=== PATIENT | female | born 1970 | race Caucasian/White ===

== ENCOUNTER 2023-09-25 11:30 | Outpatient (AMB) | payer OTHER, SELFPAY ==
--- NOTE | 2023-09-25 11:31 | A.OFFPC_ITS ---
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[facility] Intake Note: New patient visit Cupola Tender Required: No Allergies No Known Allergies Allergy (Verified 09/25/23 11:31) Medication List - Last Reconciled 09/25/23 by Ann Damon PA-C fluoxetine 20 mg PO DAILY losartan 25 mg PO DAILY Tobacco use date assessed: 09/25/23 Dental Screening Dental Screen Date: 09/25/23 Did you have a dental visit in the last 12 months?: Yes Did you have a dental problem in the last 6 months where you did not have access to dental care?: No Was dental information given to patient?: Patient has dentist HPI 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 She is transferring from [place]. She has a hx generalized anxiety, depression and htn. She states her last appointment was over a year ago. Psych: She is on fluoxetine 20 mg and states she is well controlled. CV: Blood pressure today in the office is 124/76. Her blood pressure has been controlled with losartan 25 mg. No chest pain or shortness on breath but she is getting dizziness. -she states that she is a little concern ed because in the last 9 months she has been getting these episodes of feeling lightheaded and off balance. She states it will come on out of nowhere and she will feel like she could faint or fall over. They feel about the same. She states that she then gets queasy, no vomiting but does get somewhat of a headache with it. She has not noticed if she has had any palpitations or discomfort but generally does not feel well or right. It gets better if she lays down usually. She states that movement does make it worse. She has been well hydrated she did not have any chest pain or shortness on breath with it. No episodes of syncope. No vision changes. No headaches at baseline. No numbness, tingling or weakness. She says that this was not started by an illness. She denies any recent travel. No history of vertigo before but she wonders if that is what this was. No known family history of heart disease. She is worried because the last time this happened in August it lasted for about a week on and off. She states that she was pretty much bed ridden for 1 week. Mammo: 06/10, utd Pap: overdue Bone density: postmenopausal x 1 year. 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 1. Little interest or pleasure in doing things: not at all 2. Feeling down, depressed, or hopeless: not at all 3. Trouble falling or staying asleep, or sleeping too much: several days 4. Feeling tired or having little energy: several days 5. Poor appetite or overeating: several days 6. Feeling bad about yourself - or that you are a failure or have let yourself or your family down: not at all 7. Trouble concentrating on things, such as reading the newspaper or watching television: not at all 8. Moving or speaking so slowly that other people could have noticed. Or the opposite - being so fidgety or restless that you have been moving around a lot more than usual: not at all 9. Thoughts that you would be better off or of hurting yourself in some way: not at all Total score: 3 Depression Screening Interpretation: Positive Depression Screening Follow-up: Existing condition and In treatment Depression Screening Done: Yes 22406 - PHQ-9 Billing: Yes Source: Developed by Drs. Raji De Guzman, Lillie Tan, Naeem Low and colleagues, with an educational alexander from [employer]. Thrive Questionnaire I am a: Patient What is your living situation today?: I have a steady place to live Within the past 12 months, did the food you bought not last and you didn't have the money to get more?: Never true Within the past 12 months, did you worry whether your food would run out before you got money to buy more?: Never true Do you have trouble paying for medicines?: No Do you have trouble getting transportation to medical appointments?: No Do you have trouble paying your heating and electricity bill?: No Do you have trouble taking care of your child, family member or friend?: No Do you have trouble with day-to-day activities such as bathing, preparing meals, shopping, managing finances, etc.?: No Are you currently unemployed and looking for a job?: No Are you interested in more education?: No Please select the resources that you would like help with: None Currently or been in a relationship where the following occur: No concerns reported THRIVE Score: 0 AUDIT C Alcohol Use Questionnaire (AUDIT-C) 1. How often do you have a drink containing alcohol?: Never 3. How often do you have six or more drinks on one occasion?: Never Total Score: 0 TC-7 AMB Questionnaire TC-7 Feeling nervous, anxious, or on edge: 0 = Not at all Not being able to stop or control worryin = Not at all Worrying too much about different things: 0 = Not at all Trouble relaxin = Not at all Being so restless that it is hard to sit still: 0 = Not at all Becoming easily annoyed or irritable: 0 = Not at all Feeling afraid as if something awful might happen: 0 = Not at all Total TC-7 score (0-4 normal; 5-9 mild; 10-14 moderate; 15-21 severe): 0 Source: Developed by Drs. Raji De Guzman, Lillie Tan, Naeem Low and colleagues, with an educational alexander from [employer]. TC-7 Assessment Billing TC-7 Assessment Tool: TC-7 Assessment 40232 Physical exam (Primary Care) Vital Signs: Last Vital Signs Temp 98.2 F 09/25/23 11:38 Pulse 70 09/25/23 12:26 BP 139/89 09/25/23 12:26 Pulse Ox 97 09/25/23 11:38 Oxygen Delivery Method Room Air 09/25/23 11:38 BMI result Body Mass Index 38.4 Tobacco/Smoking Status: Tobacco use Status Tobacco use date assessed 09/25/23 09/25/23 11:35 Patient Tobacco Use Status Never used Tobacco 09/25/23 11:35 e-Cigarette/Vaping Use Never Used 09/25/23 11:35 Depression Screening Interpretation: Positive Depression Screening Follow-up: Existing condition and In treatment Currently or been in a relationship where the following occur: No concerns repo rted Const Orientation/consciousness: patient oriented x3 HENMT Ears: hearing grossly normal bilaterally Neck Thyroid: Thyroid normal Lymphatic: no lymphadenopathy noted Resp Auscultation: clear to auscultation bilaterally Cardio Rate: regular rate Rhythm: regular rhythm Heart sounds: S1 normal heart sound present and S2 normal heart sound present GI Inspection: Yes normal to inspection Palpation (GI): Soft to palpation and Other GI palpation findings present (nontender, no cva tenderness) Auscultation: normoactive bowel sounds Rectal Exam - Female: deferred Skin General skin exam: no rashes or lesions noted Neuro General: patient oriented x3, gait normal, moves all extremities, no focal motor deficits, CN's II-XI intact bilaterally and deep tendon reflexes 2+ bilaterally Cognition (Neuro): normal cognition Gait exam (Neuro): Normal gait present Motor exam (neuro): 5/5 motor strength present throughout Sensory Exam: double simultaneous stimulation for sensation normal Coordination: [id number] test normal and Romberg test negative Office Procedures EKG Details: EKG today in the office is sinus bradycardia at a rate of 58 beats per minute with nonspecific STT wave abnormalities. No prior study to compare. EKG interpreted by myself and Dr. Craig. [id number], Complete Assessment and Plan Assessment & Plan (1) HTN (hypertension): Code(s): I10 - Essential (primary) hypertension Qualifiers: Hypertension type: primary hypertension Qualified Code(s): I10 - Essential (primary) hypertension Plan: Continue current regimen. Refill provided today. (2) Anxiety with depression: Code(s): F41.8 - Other specified anxiety disorders Plan: Continue fluoxetine. (3) Dizziness: Code(s): R42 - Dizziness and giddiness Plan: Labs ordered today. EKG in office is sinus bradycardia at a rate of 58 beats per minute. No prior study to compare. Orthostatic WNL. Her dizziness is vague but question vertigo. MRI ordered given the recurrent/persistence of symptoms. She does appear grossly neurologically intact today. Holter and carotid ultrasound also ordered. We will follow up pending test results. Mammogram ordered, bone density ordered, Pap ordered. More than an hour and a half is spent in nyuf-gy-[id number] time today discussing plan, ordering imaging, testing, reviewing last note from [place] and doing orthostatic and EKG. Orders: Orders Comprehensive [place]. Panel Fast Today F41.8 - Other specified anxiety disorders, I10 - Essential (primary) hypertension, R42 - Dizziness and giddiness Lipid Panel Today F41.8 - Other specified anxiety disorders, I10 - Essential (primary) hypertension, R42 - Dizziness and giddiness TSH reflex Free T4 Today F41.8 - Other specified anxiety disorders, I10 - Essential (primary) hypertension, R42 - Dizziness and giddiness UA CC w/rflx Micro + Cult Today F41.8 - Other specified anxiety disorders, I10 - Essential (primary) hypertension, R42 - Dizziness and giddiness ECG holter monitor 24 hour Today I10 - Essential (primary) hypertension, R42 - Dizziness and giddiness US carotid duplex BI Today I10 - Essential (primary) hypertension, R42 - Dizzi ness and giddiness XR DEXA axial skeleton Today Z78.0 - Asymptomatic menopausal state Complete Blood Count Auto Diff Today F41.8 - Other specified anxiety disorders, I10 - Essential (primary) hypertension, R42 - Dizziness and giddiness AMB EKG-In Office Today I10 - Essential (primary) hypertension, R42 - Dizziness and giddiness MR head/brain wo con Today R42 - Dizziness and giddiness MM screening mammo BI Today Z12.31 - Encounter for screening mammogram for mal ignant neoplasm of breast Referrals [facility] JOINING SUPERVISOR Referral Z01.419 - Encounter for gynecological examination (general) (routine) without abnormal findings Coding Level of Care Code Complex EM visit Add On G2211 Diagnoses Primary hypertension I10 Hypertension type: primary hypertension Anxiety with depression F41.8 Dizziness R42 CPT Codes EKG - CPT: 17548-[id number], Complete ([id number]) Additional Codes TC-7 Assessment Billing - TC-7 Assessment Tool: TC-7 Assessment [id number] ([id number])
[2023-09-25 11:38] VITALS: BP 124/76; PULSE 71; TEMP 36.8; O2SAT 97; BMI 38.4
[2023-09-25 12:25] VITALS: BP 139/88; BP 139/91; PULSE 62; PULSE 63
[2023-09-25 12:26] VITALS: BP 139/89; PULSE 70
== END 2023-09-25 12:23 | disposition home or self-care (01) ==
PROVIDERS: Visit Provider Physician Assistant
DX: I10 Essential (primary) hypertension (principal); F41.8 Other specified anxiety disorders; R42 Dizziness and giddiness
CPT/HCPCS: 93000; 99205; 99417; G2211

== ENCOUNTER 2023-10-22 09:42 | Outpatient (REF) | payer OTHER, SELFPAY ==
--- NOTE | ~2023-10-22 | MM_ITS ---
EXAMINATION: BONE DENSITOMETRY CLINICAL INDICATION: Menopause. COMPARISON: This is the patient's baseline examination. TECHNIQUE: Using a [employer]ish[employer] DXA System (software version: 13.1) manufactured by [employer], dual-energy x-ray absorptiometry was performed of the lumbar spine and left hip. The images are of good technical quality. Summary results are attached. FINDINGS: LEFT FEMUR, NECK: BMD 0.968 g/cm2, Z-score -0.1, T-score -0.4, normal. LEFT FEMUR, TOTAL: BMD 1.020 g/cm2, Z-score 0.1, T-score 0.1, normal. AP SPINE L1-L4: BMD 1.077 g/cm2, Z-score -1.0, T-score -0.9, normal. IDENTIFIED RISK FACTORS: Menopause. HISTORY OF FRACTURE: None listed. MEDICATIONS: Calcium or multivitamin. Vitamin D. MM/XR DEXA axial skeleton IMPRESSION: 1. DIAGNOSIS: Normal bone density based on the lowest T-score value of -0.9 in the lumbar spine applying World Health Organization criteria. 2. 10-YEAR FRACTURE RISK PREDICTION, FRAX: According to the guidelines, FRAX calculation should only be performed on patients in the osteopenia bone density category. Therefore, FRAX was not performed on this patient. 3. Treatment Recommendations: NOF guidelines recommend consideration for treatment in postmenopausal women and men age 50 and older presenting with the following: -A hip or vertebral (clinical or morphometric) fracture. -T-score less than or equal to -2.5 at the femoral neck or spine after appropriate evaluation to exclude secondary causes. -Low bone mass at the hip or spine and a 10-year fracture probability by FRAX of greater than or equal to 3% for hip fracture or greater than or equal to 20% for major osteoporotic fracture based on the [place] adapted WHO algorithm. 4. Other Recommendations: All treatment decisions require clinical judgment and consideration of individual patient factors, including patient preferences, comorbidities, previous drug use, risk factors not captured in the FRAX model (e.g. frailty, falls, vitamin D deficiency, increased bone turnover, interval significant decline in bone density) and possible under or overestimation of fracture risk by FRAX. FUTURE SCAN RECOMMENDATION: People with diagnosed cases of osteoporosis or at high risk for fracture should have regular bone mineral density tests. For patients eligible for Medicare, routine testing is allowed once every 2 years. The testing frequency can be increased to one year for patients who have rapidly progressing disease, those who are receiving or discontinuing medical therapy to restore bone mass, or have additional risk factors. Electronically signed by: Dorian Lares MD 10/29/2023 09:06 AM EDT
== END 2023-10-22 09:43 | disposition home or self-care (01) ==
LOC: HO.MAMMO 09:42
PROVIDERS: PCP Physician Assistant; Visit Provider Physician Assistant
DX: Z13.820 Encounter for screening for osteoporosis (principal); Z78.0 Asymptomatic menopausal state
CPT/HCPCS: 77080

== ENCOUNTER → 2023-10-24 12:51 | Outpatient (REF) | payer OTHER, SELFPAY ==
--- NOTE | 2023-10-24 12:55 | HM_ITS ---
* Total monitoring time 1 day. * Underlying rhythm is sinus with an average rate of 73/Min. * Rare supraventricular ectopy. * Rare ventricular ectopy. * No significant pauses or AV blocks. * No patient markers or diary events. MTDD
== END ==
LOC: HO.CARD 12:51
PROVIDERS: PCP Physician Assistant; Visit Provider Physician Assistant
DX: R42 Dizziness and giddiness (principal); I10 Essential (primary) hypertension
CPT/HCPCS: 93225

== ENCOUNTER → 2023-10-24 12:55 | Outpatient (BNV) | payer OTHER, SELFPAY | PROVIDERS: PCP Physician Assistant; Visit Provider Internal Medicine | DX: I47.10 Supraventricular tachycardia, unspecified (principal) | CPT/HCPCS: 93227 ==

== ENCOUNTER 2023-10-27 11:16 | Outpatient (REF) | payer OTHER, SELFPAY ==
[2023-10-27 14:27] LABS: MANUAL DIFF FLAG NO
[2023-10-27 14:41] LABS: Basophils Absolute Auto 0.1 X10*3/uL (0.0-0.2); Basophils Percent Auto 0.8 % (0-2); Eosinophils Absolute Auto 0.2 X10*3/uL (0.0-0.4); Eosinophils Percent Auto 1.8 % (0-4); Hematocrit 42.4 % (37.0-47.0); Imm Gran Abs Auto 0.07 X10*3/uL (0.00-0.03); Imm Gran Pct Auto 0.7 % (0.0-0.4); Lymphocytes Absolute Auto 2.9 X10*3/uL (1.2-4.9); Lymphocytes Percent Auto 29.4 % (20-40); Mean Corpuscular Hemoglobin 28.9 pg (27.0-33.0); Mean Corpuscular Volume 87.6 fL (80.0-98.0); Mean Platelet Volume 9.2 fL (9.4-12.3); Monocytes Absolute Auto 0.5 X10*3/uL (0.1-1.2); Monocytes Percent Auto 4.6 % (2-11); Neutrophils Absolute Auto 6.2 x10*3/uL (2.0-8.3); Neutrophils Percent Auto 62.7 % (45-73); Platelet Count 355 X10*3/uL (160-400); Red Blood Count 4.84 X10*6/uL (4.20-5.50); Red Cell Distribution Width 13.2 % (11.0-16.0); White Blood Count 9.9 X10*3/uL (4.8-10.8)
[2023-10-27 14:49] LABS: Appearance Urine Cloudy; Color Urine Yellow; Glucose Urine UA Negative (Negative); Leukocyte Esterase Urine Small (1+) (Negative); Nitrite Urine Negative (Negative); PH 7.5 (5.0-9.0); UMIC TRIGGER UACC YES; Urine Blood Negative (Negative); Urine Ketones Negative (Negative); Urine Protein Negative (Neg-Trace)
[2023-10-27 14:53] LABS: Bacteria Urine 2+ (None Seen); Hyaline Casts Urine 0-2 /LPF (0-2); RBC Urine 0-2 /HPF (0-2); UACC Culture Trigger YES
[2023-10-27 15:13] LABS: Alanine Aminotransferase 65 U/L (0-31); Albumin Level 4.5 g/dL (3.5-5.0); Alkaline Phosphatase 110 U/L (39-117); Anion Gap 15 (12-20); Aspartate Amino Transferase 45 U/L (5-31); Bilirubin Total 0.7 mg/dL (0.0-1.0); Blood Urea Nitrogen 17 mg/dL (9-16); Calcium 10.1 mg/dL (8.4-10.2); Carbon Dioxide 25 mmol/L (22-29); Chloride 107 mmol/L (96-108); Cholesterol 218 mg/dL (<200); Estimated Glomerular Filt Rate > 60; Glucose Fasting 87 mg/dL (60-99); HDL Cholesterol 36 mg/dL (>40); LDL Cholesterol Calculated 132 mg/dL (<100); Sodium 143 mmol/L (135-145); TSH reflex Free T4 0.75 uIU/mL (0.32-4.0); Total Protein 7.9 g/dL (6.5-8.0); Triglycerides 251 mg/dL (<150)
== END 2023-10-27 11:17 | disposition home or self-care (01) ==
LOC: HO.WFDLDS 11:16
PROVIDERS: Visit Provider Physician Assistant
DX: I10 Essential (primary) hypertension (principal); F41.8 Other specified anxiety disorders; R42 Dizziness and giddiness; R82.90 Unspecified abnormal findings in urine
CPT/HCPCS: 36415; 80053; 80061; 81001; 84443; 85025; 87086

== ENCOUNTER 2023-10-28 15:16 | Outpatient (REF) | payer OTHER, SELFPAY ==
--- NOTE | ~2023-10-28 | US_ITS ---
EXAMINATION: US EXTRACRANIAL CAROTID DUPLEX, BILATERAL CLINICAL INFORMATION: Dizziness COMPARISON: None available. TECHNIQUE: Real-time ultrasound and Doppler techniques (integrating B-mode 2-D vascular images, Doppler spectral analysis and color-flow Doppler imaging) were utilized to interrogate the extracranial carotid arteries, the vertebral arteries and proximal subclavian arteries bilaterally. The degree of stenosis is determined by criteria similar to NASCET. FINDINGS: Right Side: 1. There is no atherosclerotic plaque seen in the bifurcation/proximal ICA region. 2. The common carotid artery PSV proximally is 82 cm/s and distally 90 cm/s. 3. The proximal internal carotid artery velocities are 69 cm/s systolic and 20 cm/s diastolic. 4. The proximal external carotid artery PSV is 90 cm/s. 5. The vertebral artery shows antegrade flow. 6. The subclavian artery waveforms are normal. Left Side: 1. There is no atherosclerotic plaque seen in the bifurcation/proximal ICA region. 2. The common carotid artery PSV proximally is 91 cm/s and distally 102 cm/s. 3. The proximal internal carotid artery velocities are 68 cm/s systolic and 22 cm/s diastolic. 4. The proximal external carotid artery PSV is 108 cm/s. 5. The vertebral artery shows antegrade flow. 6. The subclavian artery waveforms are normal. US/US carotid duplex BI IMPRESSION: 1. RIGHT: Normal right internal carotid artery without atherosclerotic plaque or hemodynamically significant stenosis. 2. LEFT: Normal left internal carotid artery without atherosclerotic plaque or hemodynamically significant stenosis. Electronically signed by: Melani Kramer MD 10/31/2023 12:09 PM EDT
== END 2023-10-28 15:17 | disposition home or self-care (01) ==
LOC: HO.US 15:16
PROVIDERS: PCP Physician Assistant; Visit Provider Physician Assistant
DX: R42 Dizziness and giddiness (principal); I10 Essential (primary) hypertension
CPT/HCPCS: 93880

== ENCOUNTER 2023-11-05 15:07 | Outpatient (AMB) | payer OTHER, SELFPAY ==
--- NOTE | 2023-11-05 15:17 | A.OFFPC_ITS ---
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 She was seen recently to establish care and also complained of episodes of feeling lightheaded and off balance. She states it will come on out of nowhere and she will feel like she could faint or fall over. I did order an MRI which is scheduled for next week. She did have a Holter but states that when she had this she did not have any symptoms. She had a negative carotid ultrasound. She states since she followed up here she has not had this symptoms at all. Her la bs were overall reassuring other than elevated LFTs. She does endorse a diet with likely too many carbs/processed foods. She does not drink alcohol. Blood pressure today in the office is 118/82. She is compliant with the losartan 25 mg. Feels that her anxiety and depression well-controlled with the fluoxetine 20 mg. 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 1. Little interest or pleasure in doing things: not at all 2. Feeling down, depressed, or hopeless: not at all 3. Trouble falling or staying asleep, or sleeping too much: not at all 4. Feeling tired or having little energy: not at all 5. Poor appetite or overeating: not at all 6. Feeling bad about yourself - or that you are a failure or have let yourself or your family down: not at all 7. Trouble concentrating on things, such as reading the newspaper or watching television: not at all 8. Moving or speaking so slowly that other people could have noticed. Or the opposite - being so fidgety or restless that you have been moving around a lot more than usual: not at all 9. Thoughts that you would be better off or of hurting yourself in some way: not at all Total score: 0 Source: Developed by Drs. Raji De Guzman, Lillie Tan, Naeem Low and colleagues, with an educational alexander from [employer]. Thrive Questionnaire I am a: Patient What is your living situation today?: I have a steady place to live Within the past 12 months, did the food you bought not last and you didn't have the money to get more?: Never true Within the past 12 months, did you worry whether your food would run out before you got money to buy more?: Never true Do you have trouble paying for medicines?: No Do you have trouble getting transportation to medical appointments?: No Do you have trouble paying your heating and electricity bill?: No Do you have trouble taking care of your child, family member or friend?: No Do you have trouble with day-to-day activities such as bathing, preparing meals, shopping, managing finances, etc.?: No Are you currently unemployed and looking for a job?: No Are you interested in more education?: No Please select the resources that you would like help with: None Currently or been in a relationship where the following occur: No concerns r eported THRIVE Score: 0 AUDIT C Alcohol Use Questionnaire (AUDIT-C) 1. How often do you have a drink containing alcohol?: Monthly or less 2. How many drinks containing alcohol do you have on a typical day when you are drinking?: 1 or 2 3. How often do you have six or more drinks on one occasion?: Never Total Score: 1 TC-7 AMB Questionnaire TC-7 Feeling nervous, anxious, or on edge: 0 = Not at all Not being able to stop or control worryin = Not at all Worrying too much about different things: 0 = Not at all Trouble relaxin = Not at all Being so restless that it is hard to sit still: 0 = Not at all Becoming easily annoyed or irritable: 0 = Not at all Feeling afraid as if something awful might happen: 0 = Not at all Total TC-7 score (0-4 normal; 5-9 mild; 10-14 moderate; 15-21 severe): 0 Source: Developed by Drs. Raji De Guzman, Lillie Tan, Naeem Low and colleagues, with an educational alexander from [employer]. Physical exam (Primary Care) Vital Signs: Last Vital Signs Pulse 73 11/05/23 15:18 Resp 16 11/05/23 15:18 BP 118/82 11/05/23 15:18 Pulse Ox 96 11/05/23 15:18 Oxygen Delivery Method Room Air 11/05/23 15:18 BMI result Body Mass Index 38.8 Tobacco/Smoking Status: Tobacco use Status Tobacco use date assessed 09/25/23 11/05/23 15:22 Patient Tobacco Use Status Never used Tobacco 11/05/23 15:22 e-Cigarette/Vaping Use Never Used 11/05/23 15:22 PHQ-9: PHQ-9 Score PHQ-9: Total score 0 11/05/23 15:22 Currently or been in a relationship where the following occur: No concerns reported Const Orientation/consciousness: patient oriented x3 HENMT Ears: hearing grossly normal bilaterally Neck Thyroid: Thyroid normal Lymphatic: no lymphadenopathy noted Resp Auscultation: clear to auscultation bilaterally Cardio Rate: regular rate Rhythm: regular rhythm Heart sounds: S1 normal heart sound present and S2 normal heart sound present GI Inspection: Yes normal to inspection Palpation (GI): Soft to palpation and Other GI palpation findings present (nontender, no cva tenderness) Auscultation: normoactive bowel sounds Rectal Exam - Female: deferred Skin General skin exam: no rashes or lesions noted Neuro General: patient oriented x3, gait normal and no focal motor deficits Results Reviewed Results Reviewed: Laboratory Tests 10/27/23 11:17 WBC 9.9 RBC 4.84 Hgb 14.0 Hct 42.4 Plt Count 355 Sodium 143 Potassium 4.0 Chloride 107 Carbon Dioxide 25 Anion Gap 15 BUN 17 H Creatinine 0.72 Estimated GFR > 60 AST 45 H ALT 65 H Triglycerides 251 H Cholesterol 218 H LDL Cholesterol, Calc 132 H HDL Cholesterol 36 L TSH 0.75 US/US carotid duplex BI IMPRESSION: 1. RIGHT: Normal right internal carotid artery without atherosclerotic plaque or hemodynamically significant stenosis. 2. LEFT: Normal left internal carotid artery without atherosclerotic plaque or hemodynamically significant stenosis. HOLTER * Total monitoring time 1 day. * Underlying rhythm is sinus with an average rate of 73/Min. * Rare supraventricular ectopy. * Rare ventricular ectopy. * No significant pauses or AV blocks. * No patient markers or diary events. Assessment and Plan Assessment & Plan (1) Hyperlipidemia: Code(s): E78.5 - Hyperlipidemia, unspecified Plan: We discussed a diet at length. We will recheck lipids and LFTs in a couple of months. If still elevated we will further follow up. (2) HTN (hypertension): Code(s): I10 - Essential (primary) hypertension Qualifiers: Hypertension type: primary hypertension Qualified Code(s): I10 - Essential (primary) hypertension Plan: Continue current regimen (3) Dizziness: Code(s): R42 - Dizziness and giddiness Plan: We will follow up pending MRI. Symptoms have seemed to resolve. Medications: New fluoxetine 20 mg PO DAILY 90 caps 3RF losartan 25 mg PO DAILY 90 tabs 3RF Refilled fluoxetine 20 mg PO DAILY 90 caps 3RF losartan 25 mg PO DAILY 90 tabs 3RF Coding Level of Care Code Est Pt Level 4 (23860) Complex EM visit Add On G2211 Diagnoses Hyperlipidemia E78.5 Primary hypertension I10 Hypertension type: primary hypertension Dizziness R42
[2023-11-05 15:18] VITALS: BP 118/82; PULSE 73; RESP 16; O2SAT 96; BMI 38.8
== END 2023-11-05 15:59 | disposition home or self-care (01) ==
PROVIDERS: PCP Physician Assistant; Visit Provider Physician Assistant
DX: E78.5 Hyperlipidemia, unspecified (principal); I10 Essential (primary) hypertension; R42 Dizziness and giddiness

== ENCOUNTER → 2023-11-05 15:07 | Outpatient (BNVA) | payer OTHER, SELFPAY | PROVIDERS: PCP Physician Assistant; Visit Provider Physician Assistant | DX: E78.5 Hyperlipidemia, unspecified (principal); I10 Essential (primary) hypertension; R42 Dizziness and giddiness; Z79.899 Other long term (current) drug therapy | CPT/HCPCS: 96127 ==

== ENCOUNTER 2023-11-12 12:50 | Outpatient (REF) | payer OTHER, SELFPAY ==
--- NOTE | ~2023-11-12 | MR_ITS ---
EXAMINATION: MR BRAIN WITHOUT CONTRAST CLINICAL INFORMATION: Dizziness and giddiness. COMPARISON: None available. TECHNIQUE: MRI of the brain was obtained using routine sequences without contrast. FINDINGS: No focal restricted diffusion is demonstrated to suggest acute or subacute cerebral ischemia. No evidence of acute or chronic hemorrhagic products on heme-sensitive imaging. Few nonspecific scattered periventricular and deep white matter T2 FLAIR hyperintensities most commonly seen with mild underlying microangiopathy. The ventricles are normal in morphology and size. No abnormal mass effect. No midline shift. Normal appearance of the pituitary gland. No demonstrated mass lesions along the cerebellopontine angles. Normal positioning of the cerebellar tonsils. Normal arterial and venous vascular flow voids are present. Normal, homogeneous marrow signal. Mild mucosal thickening of the paranasal sinuses. No signal abnormalities within the mastoids. Maintained T2-weighted hyperintensity of the labyrinthine structures. MR/MR head/brain wo con IMPRESSION: 1. No acute intracranial abnormalities. 2. Mild nonspecific white matter changes most commonly seen with mild underlying microangiopathy. Electronically signed by: Quinn Aceves DO 12/08/2023 07:17 PM EDT
== END 2023-11-12 12:51 | disposition home or self-care (01) ==
LOC: HO.MRI 12:50
PROVIDERS: PCP Physician Assistant; Visit Provider Physician Assistant
DX: R42 Dizziness and giddiness (principal)
CPT/HCPCS: 70551

== ENCOUNTER 2024-04-30 07:59 | Outpatient (REF) | payer SELFPAY ==
[2024-04-30 11:25] LABS: Appearance Urine Clear; Color Urine Yellow; Glucose Urine UA Negative (Negative); Leukocyte Esterase Urine Small (1+) (Negative); Nitrite Urine Negative (Negative); PH 7.5 (5.0-9.0); UMIC TRIGGER UACC YES; Urine Blood Negative (Negative); Urine Ketones Negative (Negative); Urine Protein Negative (Neg-Trace)
[2024-04-30 11:28] LABS: Bacteria Urine 1+ (None Seen); Hyaline Casts Urine 0-2 /LPF (0-2); RBC Urine 0-2 /HPF (0-2); UACC Culture Trigger YES
[2024-04-30 12:12] LABS: Alanine Aminotransferase 48 U/L (0-31); Albumin Level 4.2 g/dL (3.5-5.0); Alkaline Phosphatase 101 U/L (39-117); Aspartate Amino Transferase 46 U/L (5-31); Bilirubin Direct 0.2 mg/dL (0.0-0.5); Bilirubin Total 0.5 mg/dL (0.0-1.0); Cholesterol 192 mg/dL (<200); HDL Cholesterol 33 mg/dL (>40); Total Protein 7.8 g/dL (6.5-8.0)
[2024-04-30 12:44] LABS: LDL Cholesterol Calculated 120 mg/dL (<100); Triglycerides 195 mg/dL (<150)
== END 2024-04-30 08:00 | disposition home or self-care (01) ==
LOC: HO.WFDLDS 07:59
PROVIDERS: Visit Provider Physician Assistant
DX: R79.89 Other specified abnormal findings of blood chemistry (principal); E78.5 Hyperlipidemia, unspecified; I10 Essential (primary) hypertension; F41.8 Other specified anxiety disorders; R42 Dizziness and giddiness
CPT/HCPCS: 36415; 80061; 80076; 81001; 87086

== ENCOUNTER 2024-05-05 07:58 | Outpatient (AMB) | payer BC, SELFPAY ==
--- NOTE | 2024-05-05 08:07 | A.OFFPC_ITS ---
Vital Signs 05/05/24 08:09 Height 5 ft 1.1 in Weight 205 lb 6 oz BMI 38.7 BP 130/82 Blood Pressure Location Rt brachial Position Sitting Respiration 12 Pulse 64 Pulse Source Pulse Oximeter Pulse Oximetry (%) 95 Oxygen Delivery Method Room Air Intake Visit Reasons: cpe Intake Note: Physical Allergies No Known Allergies Allergy (Verified 05/05/24 08:10) Medication List - Last Reconciled 05/05/24 by Ann Damon PA-C fluoxetine 20 mg PO DAILY losartan 25 mg PO DAILY Tobacco use date assessed: 09/25/23 Dental Screening Dental Screen Date: 09/25/23 HPI cpe HPI Details Patient is a 54-year-old female who presents today for a cpe. She has a hx generalized anxiety, depression and htn. Psych: She is on fluoxetine 20 mg and states she is well controlled. CV: Blood pressure today in the office is 130/82. Her blood pressure has been controlled with losartan 25 mg. No chest pain or shortness or breath or dizziness. GI: LFTs persistently elevated. No sx. Has a diet that she reports as probably not the best. Denies regular ETOH use. 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 1. Little interest or pleasure in doing things: not at all 2. Feeling down, depressed, or hopeless: not at all 3. Trouble falling or staying asleep, or sleeping too much: several days 4. Feeling tired or having little energy: not at all 5. Poor appetite or overeating: not at all 6. Feeling bad about yourself - or that you are a failure or have let yourself or your family down: not at all 7. Trouble concentrating on things, such as reading the newspaper or watching television: not at all 8. Moving or speaking so slowly that other people could have noticed. Or the opposite - being so fidgety or restless that you have been moving around a lot more than usual: not at all 9. Thoughts that you would be better off or of hurting yourself in some way: not at all Total score: 1 Depression Screening Interpretation: Negative Depression Screening Done: Yes 60579 - PHQ-9 Billing: Yes Source: Developed by Drs. Raji De Guzman, Lillie Tan, Naeem Low and colleagues, with an educational alexander from [employer]. Thrive Questionnaire Date Thrive assessed: 05/05/24 I am a: Patient What is your living situation today?: I have a steady place to live Within the past 12 months, did the food you bought not last and you didn't have the money to get more?: Never true Within the past 12 months, did you worry whether your food would run out before you got money to buy more?: Never true Do you have trouble paying for medicines?: No Do you have trouble getting transportation to medical appointments?: No Do you have trouble paying your heating and electricity bill?: No Do you have trouble taking care of your child, family member or friend?: No Do you have trouble with day-to-day activities such as bathing, preparing meals, shopping, managing finances, etc.?: No Are you currently unemployed and looking for a job?: No Are you interested in more education?: No Please select the resources that you would like help with: None Currently or been in a relationship where the following occur: No concerns reported THRIVE Score: 0 AUDIT C Alcohol Use Questionnaire (AUDIT-C) 1. How often do you have a drink containing alcohol?: Monthly or less 2. How many drinks containing alcohol do you have on a typical day when you are drinking?: 1 or 2 3. How often do you have six or more drinks on one occasion?: Never Total Score: 1 TC-7 AMB Questionnaire TC-7 Date TC - 7 assessed: 05/05/24 Feeling nervous, anxious, or on edge: 1 = Several days Not being able to stop or control worryin = Not at all Worrying too much about different things: 0 = Not at all Trouble relaxin = Not at all Being so restless that it is hard to sit still: 0 = Not at all Becoming easily annoyed or irritable: 0 = Not at all Feeling afraid as if something awful might happen: 0 = Not at all Total TC-7 score (0-4 normal; 5-9 mild; 10-14 moderate; 15-21 severe): 1 Source: Developed by Drs. Raji De Guzman, Lillie Tan, Naeem Low and colleagues, with an educational alexander from [employer]. TC-7 Assessment Billing TC-7 Assessment Tool: TC-7 Assessment 03468 Physical exam (Primary Care) Tobacco/Smoking Status: Tobacco use Status Tobacco use date assessed 09/25/23 05/05/24 08:08 Patient Tobacco Use Status Never used Tobacco 05/05/24 08:08 e-Cigarette/Vaping Use Never Used 05/05/24 08:08 PHQ-9: PHQ-9 Score PHQ-9: Total score 1 05/05/24 08:08 Depression Screening Interpretation: Negative Currently or been in a relationship where the following occur: No concerns reported Const Orientation/consciousness: patient oriented x3 HENMT Ears: hearing grossly normal bilaterally and TM's normal bilaterally General nose exam: No nasal polyps present Face and sinus: Yes sinuses nontender Mouth: Normal oral and palatal mucosa present Eyes Pupils: Equal, round and reactive pupils present EOM: EOMs intact bilaterally Neck Neck: Yes full ROM and Yes no lymphadenopathy Thyroid: Thyroid normal Chest Chest palpation & inspection: normal inspection of the chest Resp Auscultation: clear to auscultation bilaterally Cardio Rate: regular rate Rhythm: regular rhythm Heart sounds: S1 normal heart sound present and S2 normal heart sound present Peripheral pulses: Peripheral pulses 2+ throughout GI Other: Soft, nontender Auscultation: normal bowel sounds Rectal Exam - Female: deferred General: Yes no CVA tenderness Back/Spine/Pelvis Other: Nontender Back: no CVA tenderness Skin General skin exam: no rashes or lesions noted Neuro General: patient oriented x3, gait normal, CN's II-XI intact bilaterally and deep tendon reflexes 2+ bilaterally Cranial nerves: Yes Equal, round and reactive pupils present Motor exam (neuro): 5/5 motor strength present throughout Sensory Exam: double simultaneous stimulation for sensation normal Coordination: [id number] test normal and Romberg test negative Extrem General: Yes normal to inspection and Yes full ROM Psych Affect: normal affect Attitude: cooperative Thought process: Normal thought process present Thought content: Normal thought content present Insight: Good insight present (Psych) Judgement: Good judgement present (Psych) Results Reviewed Results Reviewed: Laboratory Tests 10/27/23 04/30/24 11:17 08:00 WBC 9.9 RBC 4.84 Hgb 14.0 Hct 42.4 Plt Count 355 Creatinine 0.72 Estimated GFR > 60 Fasting Glucose 87 Calcium 10.1 Total Bilirubin 0.5 Direct Bilirubin 0.2 AST 46 H ALT 48 H Alkaline Phosphatase 101 Total Protein 7.8 Albumin 4.2 Triglycerides 195 H Cholesterol 192 LDL Cholesterol, Calc 120 H HDL Cholesterol 33 L MR/MR head/brain wo con IMPRESSION: 1. No acute intracranial abnormalities. 2. Mild nonspecific white matter changes most commonly seen with mild underlying microangiopathy. US/US carotid duplex BI IMPRESSION: 1. RIGHT: Normal right internal carotid artery without atherosclerotic plaque or hemodynamically significant stenosis. 2. LEFT: Normal left internal carotid artery without atherosclerotic plaque or hemodynamically significant stenosis. MM/XR DEXA axial skeleton IMPRESSION: 1. DIAGNOSIS: Normal bone density based on the lowest T-score value of -0.9 in the lumbar spine applying World Health Organization criteria. Coding Level of Care Code Est Pt Prev Care 40-64y(71488) Diagnoses Routine general medical examination at a health care facility Z00.00 Elevated LFTs R79.89 Hyperlipidemia E78.5 Primary hypertension I10 Hypertension type: primary hypertension Anxiety with depression F41.8 Additional Codes PHQ-9 - 62651 - PHQ-9 Billing: Yes ([id number]) TC-7 Assessment Billing - TC-7 Assessment Tool: TC-7 Assessment 87385 ([id number]) Assessment & Plan Assessment & Plan (1) Routine general medical examination at a health care facility: Code(s): Z00.00 - Encounter for general adult medical examination without abnormal findings Plan: Health maintenance reviewed. Recent labs reviewed. Mammogram ordered (2) Elevated LFTs: Code(s): R79.89 - Other specified abnormal findings of blood chemistry Category: Medical Plan: Ultrasound and labs ordered. We discussed diet changes. (3) Hyperlipidemia: Code(s): E78.5 - Hyperlipidemia, unspecified Category: Medical Plan: Improved with some dietary modifications. We will continue to monitor. (4) HTN (hypertension): Code(s): I10 - Essential (primary) hypertension Category: Medical Qualifiers: Hypertension type: primary hypertension Qualified Code(s): I10 - Essential (primary) hypertension Plan: WNL. Continue current regimen (5) Anxiety with depression: Code(s): F41.8 - Other specified anxiety disorders Category: Medical Plan: Well-controlled. Continue Prozac. Orders: Orders Hepatitis B Surface Antigen Today E78.5 - Hyperlipidemia, unspecified, R79.89 - Other specified abnormal findings of blood chemistry Gamma Glutamyl Transpeptidase Today E78.5 - Hyperlipidemia, unspecified, R79.89 - Other specified abnormal findings of blood chemistry Hepatitis C Antibody Today E78.5 - Hyperlipidemia, unspecified, R79.89 - Other specified abnormal findings of blood chemistry Complete Blood Count Auto Diff Today E78.5 - Hyperlipidemia, unspecified, R79.89 - Other specified abnormal findings of blood chemistry Comprehensive Freedom. Panel Fast Today E78.5 - Hyperlipidemia, unspecified, R79.89 - Other specified abnormal findings of blood chemistry US abdomen comp w elastography Today E78.5 - Hyperlipidemia, unspecified, R79.89 - Other specified abnormal findings of blood chemistry MM screening mammo BI Today Z12.31 - Encounter for screening mammogram for malignant neoplasm of breast
[2024-05-05 08:09] VITALS: BP 130/82; PULSE 64; RESP 12; O2SAT 95; BMI 38.7
== END 2024-05-05 08:36 | disposition home or self-care (01) ==
LOC: HO.HMCFM 07:59
PROVIDERS: PCP Physician Assistant; Visit Provider Physician Assistant
DX: Z00.00 Encounter for general adult medical examination without abnormal findings (principal); R79.89 Other specified abnormal findings of blood chemistry; E78.5 Hyperlipidemia, unspecified; I10 Essential (primary) hypertension; F41.8 Other specified anxiety disorders

== ENCOUNTER → 2024-05-05 07:58 | Outpatient (BNVA) | payer BC, SELFPAY | PROVIDERS: PCP Physician Assistant; Visit Provider Physician Assistant | DX: Z00.00 Encounter for general adult medical examination without abnormal findings (principal); R79.89 Other specified abnormal findings of blood chemistry; E78.5 Hyperlipidemia, unspecified; I10 Essential (primary) hypertension; F41.8 Other specified anxiety disorders | CPT/HCPCS: 96127 ==

== ENCOUNTER 2024-06-17 07:39 | Outpatient (REF) | payer BC, SELFPAY ==
--- NOTE | ~2024-06-17 | US_ITS ---
EXAMINATION: US ABDOMEN COMPLETE WITH LIVER ELASTOGRAPHY HISTORY: R79.89 - Other specified abnormal findings of blood chemistry TECHNIQUE: Real-time grayscale ultrasound imaging of the abdomen was performed and images were reviewed. COMPARISON: There are no prior studies for comparison. FINDINGS: Liver: The right lobe of the liver measures 19.0 cm in size. The left lobe of the liver measures 10.1 cm in size. The liver demonstrates increased echotexture, consistent with steatosis. No focal mass or intrahepatic biliary ductal dilatation is identified. There is normal hepatopedal flow in the portal vein. Ultrasound elastography of the liver was performed with 10 separate measurements of the liver parenchyma with the patient in the supine position. Measurements were obtained approximately 2 cm below Chau's capsule and perpendicular to the capsule. Images are of satisfactory quality. The median shear wave velocity is 1.76 m/s. The interquartile range/median (IQR/median) is 0.21. Gallbladder and biliary tree: There are small polyps in the gallbladder. There is possible ring down artifact from the gallbladder wall, suggestive of adenomyomatosis. The gallbladder is otherwise unremarkable, without evidence of calculi, wall thickening, or pericholecystic fluid. There is no sonographic Ball sign. The common bile duct is normal in caliber measuring 5 mm. Kidneys: The right kidney measures 11.9 cm in length. The left kidney measures 12.0 cm in length. The kidneys are unremarkable, without evidence of masses, hydronephrosis, or calculi. Pancreas: The pancreatic head, neck, and body are unremarkable. The pancreatic tail is obscured by bowel gas. Spleen: The spleen is enlarged, measuring 13.1 cm in length. Abdominal aorta and inferior vena cava: The visualized portions of the abdominal aorta and inferior vena cava are normal in caliber. There is no free fluid in the abdomen. US/US abdomen comp w elastography IMPRESSION: 1. Hepatosplenomegaly and hepatic steatosis 2. Gallbladder polyps and possible adenomyomatosis. The median shear wave velocity in the liver is 1.76 m/s, corresponding to a median liver stiffness of 9.48 kPa. The IQR/median value is 0.21. This is indicative of a poor quality data set, and the estimated liver stiffness may be unreliable. Findings are indicative of a low elastography value which rules out advanced chronic liver disease in asymptomatic patients. REFERENCE: Society of Radiologists in Ultrasound Liver Stiffness Thresholds (2020): LIVER STIFFNESS THRESHOLDS: *Shear wave velocity less than 1.3 m/s (Liver Stiffness equal or less than 5 kPa): High probability of being normal. *Shear wave velocity less than 1.7 m/s (Liver Stiffness less than 9 kPa): In the absence of other known clinical signs, rules out compensated advanced chronic liver disease. *Shear wave velocity between 1.7-2.1 m/s (Liver Stiffness 9-13 kPa): Suggestive of compensated advanced chronic liver disease but need further test for confirmation. *Shear wave velocity between 2.1-2.4 m/s (Liver Stiffness 13-17 kPa): Rules in compensated advanced chronic liver disease. *Shear wave velocity greater than 2.4 m/s (Liver Stiffness over 17 kPa): Suggestive of clinically significant portal hypertension. QUALITY OF DATA SET: *IQR/Median value equal or less that 0.15 implies a quality data set. *IQR/Median value over 0.15 implies a poor quality data set. SIGNIFICANT CHANGE FROM PRIOR EXAM: Significant change if liver stiffness measurement is 10% or greater from prior exam. OTHER CONSIDERATIONS: The stage of liver fibrosis may be overestimated in the setting of acute hepatitis, liver inflammation, elevated liver function tests, hepatic vascular congestion, obstructive cholestasis, non-fasting state, and infiltrative diseases such as amyloidosis and lymphoma. In some patients with NAFLD, the liver stiffness thresholds for compensated advanced chronic liver disease may be lower. In causes other than viral hepatitis and NAFLD, liver stiffness thresholds are not well established. Electronically signed by: Raji Ramos MD 06/17/2024 08:56 AM EDT
== END 2024-06-17 07:40 | disposition home or self-care (01) ==
LOC: HO.US 07:39
PROVIDERS: PCP Physician Assistant; Visit Provider Physician Assistant
DX: R79.89 Other specified abnormal findings of blood chemistry (principal); E78.5 Hyperlipidemia, unspecified
CPT/HCPCS: 76700; 76981

== ENCOUNTER → 2024-06-17 07:40 | Outpatient (BNV) | payer BC, SELFPAY | PROVIDERS: PCP Physician Assistant; Visit Provider Radiology Diagnostic Radiology | DX: R16.2 Hepatomegaly with splenomegaly, not elsewhere classified (principal); K76.0 Fatty (change of) liver, not elsewhere classified | CPT/HCPCS: 76700; 76981 ==

== ENCOUNTER 2024-06-30 10:18 | Outpatient (REF) | payer BC, SELFPAY ==
[2024-06-30 14:57] LABS: MANUAL DIFF FLAG NO
[2024-06-30 15:02] LABS: Basophils Absolute Auto 0.1 X10*3/uL (0.0-0.2); Basophils Percent Auto 0.5 % (0-2); Eosinophils Absolute Auto 0.2 X10*3/uL (0.0-0.4); Eosinophils Percent Auto 1.9 % (0-4); Hematocrit 43.3 % (37.0-47.0); Hemoglobin 14.1 g/dl (12.0-16.0); Imm Gran Abs Auto 0.07 X10*3/uL (0.00-0.03); Imm Gran Pct Auto 0.7 % (0.0-0.4); Lymphocytes Absolute Auto 3.2 X10*3/uL (1.2-4.9); Lymphocytes Percent Auto 32.1 % (20-40); Mean Corpuscular HGB Conc 32.6 g/dl (31.0-35.0); Mean Corpuscular Hemoglobin 28.6 pg (27.0-33.0); Mean Corpuscular Volume 87.8 fL (80.0-98.0); Mean Platelet Volume 9.2 fL (9.4-12.3); Monocytes Absolute Auto 0.5 X10*3/uL (0.1-1.2); Monocytes Percent Auto 4.6 % (2-11); Neutrophils Percent Auto 60.2 % (45-73); Platelet Count 349 X10*3/uL (160-400); Red Blood Count 4.93 X10*6/uL (4.20-5.50); Red Cell Distribution Width 13.2 % (11.0-16.0); White Blood Count 9.9 X10*3/uL (4.8-10.8)
[2024-06-30 15:03] LABS: Appearance Urine Turbid; Color Urine Yellow; Glucose Urine UA Negative (Negative); Leukocyte Esterase Urine Trace (Negative); Nitrite Urine Negative (Negative); UMIC TRIGGER UACC YES; Urine Blood Negative (Negative); Urine Ketones Negative (Negative); Urine Protein Negative (Neg-Trace)
[2024-06-30 15:09] LABS: Bacteria Urine Trace (None Seen); Hyaline Casts Urine 0-2 /LPF (0-2); RBC Urine 0-2 /HPF (0-2); Squamous Epithelial Cell Urine 0-2 /HPF (0-2); WBC Urine 0-5 /HPF (0-5)
[2024-06-30 15:26] LABS: Alanine Aminotransferase 45 U/L (0-31); Albumin Level 4.5 g/dL (3.5-5.0); Anion Gap 13 (12-20); Aspartate Amino Transferase 41 U/L (5-31); Bilirubin Total 0.6 mg/dL (0.0-1.0); Blood Urea Nitrogen 14 mg/dL (9-16); Calcium 9.6 mg/dL (8.4-10.2); Carbon Dioxide 25 mmol/L (22-29); Chloride 108 mmol/L (96-108); Estimated Glomerular Filt Rate > 60; Gamma Glutamyl Transpeptidase 58 U/L (7-33); Glucose Fasting 85 mg/dL (60-99); Potassium 3.9 mmol/L (3.3-5.1); Sodium 142 mmol/L (135-145); Total Protein 7.7 g/dL (6.5-8.0)
[2024-06-30 17:01] LABS: Alkaline Phosphatase 111 U/L (39-117)
[2024-07-01 07:59] LABS: Hepatitis B Surface Antigen Negative (Negative); ~HepC Num1 0.09 S/CO (0.00-0.79); ~Hepatitis C Antibody Nonreactive (Nonreactive)
== END 2024-06-30 10:19 | disposition home or self-care (01) ==
LOC: HO.WFDLDS 10:18
PROVIDERS: Visit Provider Physician Assistant
DX: E78.5 Hyperlipidemia, unspecified (principal); R79.89 Other specified abnormal findings of blood chemistry
CPT/HCPCS: 36415; 80053; 81001; 81003; 82977; 85025; 86803; 87340

== ENCOUNTER 2024-07-01 15:46 | Outpatient (AMB) | payer BC, SELFPAY ==
--- NOTE | 2024-07-01 15:42 | A.OFFPC_ITS ---
Intake Visit Reasons: Lab s results Intake Note: Lab results. Bobbin Hauler Required: No Allergies No Known Allergies Allergy (Verified 07/01/24 15:42) Tobacco use date assessed: 07/01/24 Dental Screening Dental Screen Date: 07/01/24 Did you have a dental visit in the last 12 months?: Yes Did you have a dental problem in the last 6 months where you did not have access to dental care?: No Was dental information given to patient?: Patient has dentist HPI Lab s results HPI Details Patient is a 54-year-old female who presents today for a f/u. She has a hx generalized anxiety, depression and htn. Psych: She is on fluoxetine 20 mg and states she is well controlled. CV: Blood pressure today in the office is 130/82. Her blood pressure has been controlled with losartan 25 mg. No chest pain or shortness or breath or dizziness. GI: LFTs persistently elevated. No sx. Has a diet that she reports as probably not the best. Denies regular ETOH use. 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 Current occupational exposures/hazards: No Cognitive needs: No Hearing needs: No Vision needs: No Questionnaire Thrive Questionnaire Date Thrive assessed: 05/05/24 I am a: Patient What is your living situation today?: I have a steady place to live Within the past 12 months, did the food you bought not last and you didn't have the money to get more?: Never true Within the past 12 months, did you worry whether your food would run out before you got money to buy more?: Never true Do you have trouble paying for medicines?: No Do you have trouble getting transportation to medical appointments?: No Do you have trouble paying your heating and electricity bill?: No Do you have trouble taking care of your child, family member or friend?: No Do you have trouble with day-to-day activities such as bathing, preparing meals, shopping, managing finances, etc.?: No Are you currently unemployed and looking for a job?: No Are you interested in more education?: No Please select the resources that you would like help with: None Currently or been in a relationship where the following occur: No concerns reported THRIVE Score: 0 AUDIT C Alcohol Use Questionnaire (AUDIT-C) 1. How often do you have a drink containing alcohol?: Monthly or less 2. How many drinks containing alcohol do you have on a typical day when you are drinking?: 1 or 2 3. How often do you have six or more drinks on one occasion?: Never Total Score: 1 TC-7 AMB Questionnaire TC-7 Date TC - 7 assessed: 05/05/24 Source: Developed by Drs. Raji De Guzman, Lillie Tan, Naeem Low and colleagues, with an educational alexander from [employer]. Physical exam (Primary Care) Tobacco/Smoking Status: Tobacco use Status Tobacco use date assessed 07/01/24 07/01/24 15:45 Patient Tobacco Use Status Never used Tobacco 07/01/24 15:45 e-Cigarette/Vaping Use Never Used 07/01/24 15:45 Thrive Assessment: Date of Thrive Assessment Date Thrive assessed 05/05/24 07/01/24 15:45 Currently or been in a relationship where the following occur: No concerns reported Telehealth Telehealth Telehealth Platform: Telephone Location of provider rendering services: practice address Location of patient: address on file Patient Identification confirmed using: Name, : Yes Telehealth method: voice only Patient verbally consented to treatment: Yes Patient verbally consented to billing insurance company: Yes Patient informed of any privacy concerns related to visit: Yes Minutes spent on Phone/Video with Pt.: 20 Results Reviewed Results Reviewed: Laboratory Tests 06/30/24 10:20 WBC 9.9 RBC 4.93 Hgb 14.1 Hct 43.3 Plt Count 349 Sodium 142 Potassium 3.9 Chloride 108 Carbon Dioxide 25 Anion Gap 13 BUN 14 Creatinine 0.67 Estimated GFR > 60 Fasting Glucose 85 GGT 58 H AST 41 H ALT 45 H Alkaline Phosphatase 111 Total Protein 7.7 Albumin 4.5 Hep Bs Antigen Negative Hepatitis C Ab (EIA) Nonreactive US/US abdomen comp w elastography IMPRESSION: 1. Hepatosplenomegaly and hepatic steatosis 2. Gallbladder polyps and possible adenomyomatosis. The median shear wave velocity in the liver is 1.76 m/s, corresponding to a median liver stiffness of 9.48 kPa. The IQR/median value is 0.21. This is indicative of a poor quality data set, and the estimated liver stiffness may be unreliable. Findings are indicative of a low elastography value which rules out advanced chronic liver disease in asymptomatic patients. Coding Level of Care Code Tele Est Pt Level 3 (28362) Complex EM visit Add On G2211 Diagnoses Elevated LFTs R79.89 Hepatomegaly R16.0 Gallbladder polyp K82.4 Splenomegaly R16.1 Assessment & Plan Assessment & Plan (1) Elevated LFTs: Code(s): R79.89 - Other specified abnormal findings of blood chemistry Category: Medical Plan: Referral to GI She is going to make significant diet changes and I will recheck in a couple of months. (2) Hepatomegaly: Code(s): R16.0 - Hepatomegaly, not elsewhere classified Category: Medical Plan: As above (3) Gallbladder polyp: Code(s): K82.4 - Cholesterolosis of gallbladder Category: Medical Plan: Does not wish to see General surgery. We will recheck ultrasound in 6 months (4) Splenomegaly: Code(s): R16.1 - Splenomegaly, not elsewhere classified Category: Medical Plan: As above. Labs ordered. We will monitor. Orders: Orders Liver Panel 07/01/24 K82.4 - Cholesterolosis of gallbladder, R16.0 - Hepatomegaly, not elsewhere classified, R16.1 - Splenomegaly, not elsewhere classified, R79.89 - Other specified abnormal findings of blood chemistry Basic Metabolic Panel 07/01/24 K82.4 - Cholesterolosis of gallbladder, R16.0 - Hepatomegaly, not elsewhere classified, R16.1 - Splenomegaly, not elsewhere classified, R79.89 - Other specified abnormal findings of blood chemistry Ferritin 07/01/24 K82.4 - Cholesterolosis of gallbladder, R16.0 - Hepatomegaly, not elsewhere classified, R16.1 - Splenomegaly, not elsewhere classified, R79.89 - Other specified abnormal findings of blood chemistry IRON PROFILE 07/01/24 K82.4 - Cholesterolosis of gallbladder, R16.0 - Hepatomegaly, not elsewhere classified, R16.1 - Splenomegaly, not elsewhere classified, R79.89 - Other specified abnormal findings of blood chemistry TSH reflex Free T4 07/01/24 K82.4 - Cholesterolosis of gallbladder, R16.0 - Hepatomegaly, not elsewhere classified, R16.1 - Splenomegaly, not elsewhere classified, R79.89 - Other specified abnormal findings of blood chemistry Complete Blood Count Auto Diff 07/01/24 K82.4 - Cholesterolosis of gallbladder, R16.0 - Hepatomegaly, not elsewhere classified, R16.1 - Splenomegaly, not elsewhere classified, R79.89 - Other specified abnormal findings of blood chemistry US abdomen complete 6 Months K82.4 - Cholesterolosis of gallbladder, R16.0 - Hepatomegaly, not elsewhere classified, R16.1 - Splenomegaly, not elsewhere classified, R79.89 - Other specified abnormal findings of blood chemistry Referrals Gastroenterology Referral R16.0 - Hepatomegaly, not elsewhere classified, R79.89 - Other specified abnormal findings of blood chemistry
== END 2024-07-01 17:05 | disposition home or self-care (01) ==
LOC: HO.HMCFM 15:46
PROVIDERS: PCP Physician Assistant; Visit Provider Physician Assistant
DX: R79.89 Other specified abnormal findings of blood chemistry (principal); R16.0 Hepatomegaly, not elsewhere classified; K82.4 Cholesterolosis of gallbladder; R16.1 Splenomegaly, not elsewhere classified

== ENCOUNTER → 2024-07-01 15:46 | Outpatient (BNVA) | payer BC, SELFPAY | PROVIDERS: PCP Physician Assistant; Visit Provider Physician Assistant | DX: F41.1 Generalized anxiety disorder (principal); F32.A Depression, unspecified; I10 Essential (primary) hypertension; R79.89 Other specified abnormal findings of blood chemistry; R16.0 Hepatomegaly, not elsewhere classified; K82.4 Cholesterolosis of gallbladder; R16.1 Splenomegaly, not elsewhere classified | CPT/HCPCS: 98967 ==

== ENCOUNTER 2024-07-07 13:21 | Outpatient (REF) | payer BC, SELFPAY ==
[2024-07-14 07:56] LABS: HPV Genotype 16 Negative (Negative); HPV Genotype 18 Negative (Negative); HPV High Risk Negative (Negative)
== END 2024-07-07 13:22 | disposition home or self-care (01) ==
LOC: HO.LNP 13:21
PROVIDERS: PCP Physician Assistant; Visit Provider Advanced Practice Midwife
DX: Z01.419 Encounter for gynecological examination (general) (routine) without abnormal findings (principal)
CPT/HCPCS: 87626; 88175

== ENCOUNTER 2024-07-07 13:21 | Outpatient (AMB) | payer BC, SELFPAY ==
[2024-07-07 13:26] VITALS: BP 130/78; BMI 38.8
--- NOTE | 2024-07-07 13:26 | MHC.OFFVIS ---
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 She is doing well with data virtualization consultant concerns: Admits to vaginal dryness. Currently sexually active. STI testing offered; she declines. Attempting to eat a healthy diet with calcium and vitamin D and stays active with exercise-walks, strenght training. Last pap smear; many years ago, she reports normal history. Last mammogram; she can not remember the last exam, patient is scheduled July 21. Colonoscopy is UTD. Family history of breast cancer, sister premenopausal. 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 Current occupational exposures/hazards: No Cognitive needs: No Hearing needs: No Vision needs: No Female Reproductive History Menstrual Menopause type: natural Total pregnancies: 2 Full term: 2 Number of Living Children: 2 Date of last Bone Density Screenin10/22/23 Review of Systems Const All systems reviewed & are unremarkable except as noted in HPI and below Reports as per HPI Eyes Reports no additional complaints ENT Reports no additional complaints Card Reports no additional complaints Resp Reports no additional complaints GI Reports as per HPI and Reports no additional complaints Reports as per HPI Musc Reports no additional complaints Skin/Breast Reports as per HPI Neuro Reports no additional complaints Psych Reports no additional complaints Endo Reports no additional complaints David/Lymph Reports no additional complaints Aller/Immun Reports no additional complaints Physical Exam Vital Signs: Last Vital Signs BP 130/78 07/07/24 13:26 BMI result Body Mass Index 38.8 Const General: cooperative, healthy appearing, no acute distress, well developed and alert Orientation/consciousness: patient oriented x3 HEENT Head: Yes normal to inspection Eyes General: appearance normal, both eyes and all related structures Neck Neck: Yes normal visual inspection Thyroid: Thyroid normal Chest Chest palpation & inspection: normal inspection of the chest and other (no puckering, dimpling, peau de orange, retraction, discharge, masses) Breast/axilla inspection: normal inspection of the breasts Breast/axilla palpation: normal palpation of the breasts Resp Effort & Inspection: normal respiratory effort GI Inspection: Yes normal to inspection and Yes scar Palpation (GI): Soft to palpation Rectal Exam - Female: deferred General: Yes bladder normal to palpation External Female Exam: normal external appearance and normal appearance of the urethra Speculum Exam - Vagina: normal appearance of the vagina, normal palpation, normal vaginal discharge and vagina atrophic Speculum Exam - Cervix: normal appearance of the cervix, normal palpation and Other cervical findings present (Bled slightly with Pap) Bimanual exam- vagina & uterus: normal bimanual exam, normal palpation, uterine size normal, bladder normal to palpation, normal palpation and non-tender Bimanual Exam- Adnexa, other: no masses Skin General skin exam: no rashes or lesions noted Rashes: no rashes Neuro General: patient oriented x3 Cognition (Neuro): normal cognition Extrem General: Yes normal to inspection Psych Attitude: cooperative Thought process: Normal thought process present Assessment & Plan Assessment & Plan (1) Encounter for well woman exam with routine gynecological exam: Code(s): Z01.419 - Encounter for gynecological examination (general) (routine) without abnormal findings Category: Medical Plan Discussed: Current recommendations for pap smears per ASCCP guidelines. Breast awareness, periodic self breast exams and yearly mammogram. Maintain a healthy lifestyle, well balanced diet including Calcium 1,200 mg and Vitamin D 600 IU daily, and routine exercise. Osteopenia prevention, Mediterranean diet and calcium food list handout provided. Contact the office with any postmenopausal bleeding. Replens moisturizer and lubrication information provided. Patient verbalizes understanding and agrees to the plan of care. She was given opportunity to ask questions and all questions were answered to the best of my ability. RTO in 1 year for annual data virtualization consultant exam. This note is constructed using voice recognition software. While every effort has been made to ensure accuracy, dinkey engine operator errors may have been included. Orders: Orders HPV High risk Today Z01.419 - Encounter for gynecological examination (general) (routine) without abnormal findings Pap Smear Today Z01.419 - Encounter for gynecological examination (general) (routine) without abnormal findings Coding Level of Care Code New Pt Prev Care 40-64y(91841) Diagnoses Encounter for well woman exam with routine gynecological exam Z01.419
== END 2024-07-07 14:05 | disposition home or self-care (01) ==
LOC: HO.HWS 13:21
PROVIDERS: PCP Physician Assistant; Visit Provider Advanced Practice Midwife
DX: Z01.419 Encounter for gynecological examination (general) (routine) without abnormal findings (principal)
CPT/HCPCS: 99386; 99459

== ENCOUNTER 2024-07-19 08:16 | Outpatient (REF) | payer BC, SELFPAY | END 2024-07-19 08:17 | disposition home or self-care (01) | LOC: HO.MAMMO 08:16 | PROVIDERS: Visit Provider Physician Assistant | DX: Z12.31 Encounter for screening mammogram for malignant neoplasm of breast (principal) | CPT/HCPCS: 77063; 77067 ==

== ENCOUNTER → 2024-07-19 08:30 | Outpatient (BNV) | payer BC, SELFPAY | PROVIDERS: Visit Provider Internal Medicine | DX: Z12.31 Encounter for screening mammogram for malignant neoplasm of breast (principal) | CPT/HCPCS: 77063; 77067 ==

== ENCOUNTER 2024-11-10 12:48 | Outpatient (AMB) | payer BC, SELFPAY ==
--- NOTE | 2024-11-10 13:01 | MHC.OFFVIS ---
Vital Signs 11/10/24 13:08 Height 5 ft 1 in Weight 202 lb 13.204 oz BMI 38.3 BP 137/66 Blood Pressure Location Lt brachial Position Sitting Pulse 74 Intake Visit Reasons: Hepatomegaly Intake Note: Chelsie presents in the office as a new patient for Hepatomegaly. CC: States that she does not have any out of the oridinary symptoms to worry about. Coal Shoveler Required: No Allergies No Known Allergies Allergy (Verified 11/10/24 13:08) HPI Comments Details: 54 y.o F with PMH of who is here for elevated LFTs. Reports LFTs done as routine part of physical. NO abd pain, N,V, pruritus. No fam hx of liver disease. Drinks etOH 1-2 times a month. No smoking. Also has elastography done that showed hepatic steatosis mild enlargement of liver and GB polyps. Elasto measureements were unreliable due to poor quality data set. High chol noted. FBS normal. BMI 38. Sedentary job, minimal exercise. 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 Current occupational exposures/hazards: No Cognitive needs: No Hearing needs: No Vision needs: No Review of Systems Const All systems reviewed & are unremarkable except as noted in HPI and below Physical Exam Exam Exam: No apparent distress Nonicteric Abdomen soft, nondistended Alert and oriented x3, normal gait Vital Signs: Last Vital Signs Pulse 74 11/10/24 13:08 BP 137/66 11/10/24 13:08 BMI result Body Mass Index 38.3 Assessment & Plan Assessment & Plan (1) Gallbladder polyp: Code(s): K82.4 - Cholesterolosis of gallbladder Category: Medical (2) Hyperlipidemia: Code(s): E78.5 - Hyperlipidemia, unspecified Category: Medical (3) Elevated LFTs: Code(s): R79.89 - Other specified abnormal findings of blood chemistry Category: Medical (4) Hepatomegaly: Code(s): R16.0 - Hepatomegaly, not elsewhere classified Category: Medical (5) Obesity: Code(s): E66.9 - Obesity, unspecified Category: Medical Plan Based on overall assessment 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 Fib 4 0.96 i.e low risk of progression at this time. Reviewed risk factors that lead to progression of liver disease. Plan: - Total 10% TBW loss recommended over 6 months - Start lipitor 20 once daily - At least 150 mins of mod intensity exercise per week - Check lipid panel, A1c and liver panel in 3 months - Will also check hep serologies at that time for vaccination indication GB polyps - incidentally noted on US elasto. Plan: - Repeat US abd in 6 months from prior - due Dec 2024. Follow up 3 months Orders: Orders US abdomen complete 2 Months K82.4 - Cholesterolosis of gallbladder Lipid Panel 3 Months R7.89 - Other specified abnormal findings of blood chemistry Hepatitis B Surface Antibody 3 Months R7.89 - Other specified abnormal findings of blood chemistry Liver Panel 3 Months R79.89 - Other specified abnormal findings of blood chemistry Hepatitis A IgG 3 Months R79.89 - Other specified abnormal findings of blood chemistry Hepatitis B Core Antibody 3 Months R79.89 - Other specified abnormal findings of blood chemistry Medications: New atorvastatin (Lipitor) 20 mg PO BEDTIME 90 tabs 1RF 90 days Coding Level of Care Code New Pt Level 4 (28682) Complex EM visit Add On G2211 Diagnoses Gallbladder polyp K82.4 Hyperlipidemia E78.5 Elevated LFTs R79.89 Hepatomegaly R16.0 Obesity E66.9
[2024-11-10 13:08] VITALS: BP 137/66; PULSE 74; BMI 38.3
--- OUTSIDE RECORDS SUMMARY | 2024-11-10 15:16 | XMS_ITS | Clinical Summary ---
Author Organization [facility] Address [address] [place], [place] [id number] Phone Care Team Providers Care Formal Waiter/Waitress Name Role Phone Peter Walker MD Primary Care Provider Allergies No known active allergies Medications FLUoxetine (PROZAC) 20 MG capsule Take by mouth daily. 08/10/2020 Active losartan (COZAAR) 25 MG tablet Take 25 mg by mouth daily. Not sure of mg Active Active Problems No known active problems Immunizations Immunization Administration Dates Next Due COVID-19 (Pre-12/09) Pfizer Vaccine, mRNA, PF 07/04/2020,06/09/2020 INFLUENZA, SPLIT VIRUS, TRIV ALENT W/ PRESERVATIVE IM 01/03/2014,12/15/2012 Influenza Quadrivalent MDCK Preservative Free IM 01/07/2022,11/03/2020,11/30/2019,2017 Td (adult),2 Lf Tetanus Toxo id, PF, Adsorbed 01/20/2006 Tdap 08/05/2012 Family History Medical History Relation Comments Alcohol abuse Father Cancer Mother Relation Status Comments Father Mother Social History Tobacco Use Types Packs/Day Years Used Date Smoking Tobacco: Never Smokeless Tobacco: Never Tobacco Cessation:Counseling Given: Not Answered Alcohol Use Standard Drinks/Week Comments Yes 0 (1 standard drink = 0.6 oz pur e alcohol) Very little Education Answer Date Recorded Are you interested in more education? Not on samantha e 06/15/2022 Are you concerned about learning? Not on file 06/15/2022 No 06/15/2022 No 06/15/2022 Digital Access Answer Date Recorded No 07/14/2022 No 07/14/2022 No 07/14/2022 Reliable internet access at home? Not on file 07/14/2022 Device with a working camera? Not on file Comments Unknown Sex and Gender Information Value Date Recorded Sex Assigned at Not on file Legal Sex Female 3:29 PM EDT Gender Identity Not on file Sexual Orientation Not on file Last Filed Vital Signs Vital Sign Reading Time Taken Comments Blood Pressure 125/81 01/23/2022 3:29 PM EST Pulse 95 01/23/2022 3:29 PM EST Temperature 36.5 C (97.7 F) 01/23/2022 3:29 PM EST Respiratory Rate 20 01/23/2022 3:29 PM EST Oxygen Saturation 97% 01/23/2022 3:29 PM EST Inhaled Oxygen Concentration - - Weight 88.5 kg (195 lb) 01/23/2022 3:29 PM EST Height 157.5 cm (5' 2 ) 01/23/2022 3:29 PM EST Body Mass Index 35.67 01/23/2022 3:29 PM EST Plan of Treatment Health Maintenance Due Date Last Done Comments CREATININE LEVEL 1969 LIPID PANEL 1969 POTASSIUM LEVEL 1969 DEPRESSION SCREENING 1981 HEPATITIS C SCREENING 1987 HIV ONE-TIME SCREENING (18-65 YEARS) 1987 PAP SMEAR 1990 SCREENING FOR DIABETES 2004 MAMMOGRAM 2009 COLOGUARD 2014 COLONOSCOPY 2014 COLORECTAL CANCER SCREENING 2014 FIT TEST 2014 FOBT 2014 SIGMOIDOSCOPY 2014 VIRTUAL COLONOSCOPY 2014 PNEUMOCOCCAL VACCINES (50+ years) (1 of 1 - PCV) 2019 ZOSTER VACCINES (1 of 2) 2019 Adult Td,Tdap Booster 08/05/2022 08/05/2012, 006 INFLUENZA VACCINE (#1) 2024 2, 11/03/2020, 11/30/2019, Additional history exists COVID-19 VACCINE (2024- season) 2024 02/19/2021, 07/04/2020, 06/09/2020 SMOKING STATUS SCREENING (Once After 26 Yrs) Completed 01/23/2022 HEPATITIS A VACCINES Aged Out No long er eligible based on patient's age to complete this topic HIB VACCINES Aged Out No longer eligi ble based on patient's age to complete this topic MENINGOCOCCAL VACCINES (ACWY) Aged Out No longer eligible based on patient's age to complete this topic MENINGOCOCCAL VACCINES (B) Aged Out N o longer eligible based on patient's age to complete this topic Medical Devices Not on file Insurance Care Teams Formal Waiter/Waitress Relationship Specialty Start Date End Date Peter Walker MD [address] [place] [address] PCP - General Hospitalist 01/23/22 Additional Source Comments The information contained in this document represents components of the legal health record. It is not the complete legal health record.[facility]
== END 2024-11-10 13:44 | disposition home or self-care (01) ==
PROVIDERS: Family Provider Physician Assistant; Visit Provider Internal Medicine
DX: K82.4 Cholesterolosis of gallbladder (principal); E78.5 Hyperlipidemia, unspecified; R79.89 Other specified abnormal findings of blood chemistry; R16.0 Hepatomegaly, not elsewhere classified; E66.9 Obesity, unspecified
CPT/HCPCS: 99204

== ENCOUNTER 2025-01-10 07:53 | Outpatient (REF) | payer BC, SELFPAY ==
--- NOTE | ~2025-01-10 | US_ITS ---
CLINICAL HISTORY: K82.4 - Cholesterolosis of gallbladder US abdomen complete Comparison: US/SR - US ABDOMEN COMP W ELASTOGRAPHY - 06/17/24 07:47 EDT Findings: The visualized pancreas is normal. The visualized aorta and inferior vena cava are normal caliber. The liver is borderline enlarged, right lobe length is 17.7 cm versus 19 cm previously. Diffusely echogenic liver parenchyma, similar to prior. no discrete lesion is visualized in the imaged liver. No intrahepatic bile duct dilatation. The common duct is 4 mm in diameter. 6 mm versus 5 mm previously gallbladder polyp, otherwise normal gallbladder, negative sonographic Ball's sign. The main portal vein is patent with antegrade flow. The right kidney is normal, 11.7 cm in length. The left kidney is normal, 11.7 cm in length. The spleen is normal, 12.0 cm in length. No free fluid in the abdomen. Impression: 1. 6 mm gallbladder polyp. 2. Borderline hepatomegaly, improved. 3. Persistent echogenic liver parenchyma, suggestive of parenchymal liver disease. Society of Radiologists in Ultrasound guidelines (202) The Society of Radiologists in Ultrasound (SRU) found no link between gallbladder carcinoma and polyps 17. Most gallbladder cancers arise from flat dysplastic epithelium that thickens as the cancer progresses. They recognize three categories of polyps: non-neoplastic, benign neoplastic, and malignant. The follow-up period is shortened to 3 years. Concerning growth is increased to >4 mm per annum. Slow growth of benign polyps up to 2 mm per annum is common, and conversely, many small polyps disappear. Most malignant polyps are >20 mm. According to the 2021 guidelines: * extremely low risk polyps (pedunculated [id number]-wall, or thin stalk): * ?9 mm: no follow-up * 10-14 mm: follow-up ultrasound at 6, 12, and 24 months * ?15 mm: surgical consultation * low risk polyps (pedunculated with thick stalk, or sessile): * ?6 mm: no follow-up * 7-9 mm: follow-up ultrasound at 12 months * 10-14 mm: follow-up ultrasound at 6, 12, 24, and 36 months or surgical consultation * ?15 mm: surgical consultation * indeterminate risk polyps (focal wall thickening ?4 mm adjacent to polyp): * ?6 mm: follow-up ultrasound at 6, 12, 24, and 36 months or surgical consultation * ?7 mm: surgical consultation This document has been electronically signed by: Nati Griffith MD on 01/10/2025 14:49:38
--- OUTSIDE RECORDS SUMMARY | 2025-01-10 07:55 | XMS_ITS | Clinical Summary ---
Author Organization [facility] Address [address] [place], [place] [id number] Phone Care Team Providers Care Special Education Para Professional Name Role Phone Peter Walker MD Primary [...] 11/03/2020, 11/30/2019, Additional history exists COVID-19 VACCINE ( - 2024- season) 2024 02/19/2021, 07/04/2020, 06/09/2020 RSV VACCINE (1 - 1-dose 75+ series) 2044 SMOKING STATUS SCREENING (Once After 26 Yrs) [...] topic Medical Devices Not on file [place] [address] [place] [address] [place] [address] POS UNITED POS [place] [address] [place] [address] POS [place] [address] [place] [address] POS Care Teams Special Education Para Professional Relationship Specialty Start Date End Date Peter Walker MD [address] [place] [address] PCP - General Hospitalist 01/23/22 Additional Source Comments The information contained in this document represents components of the legal health record. It is not the complete legal health record.[facility]
== END 2025-01-10 07:54 | disposition home or self-care (01) ==
LOC: HO.US 07:53
PROVIDERS: PCP Physician Assistant; Visit Provider Internal Medicine
DX: K82.4 Cholesterolosis of gallbladder (principal)
CPT/HCPCS: 76700

== ENCOUNTER → 2025-01-10 07:56 | Outpatient (BNV) | payer BC, SELFPAY | PROVIDERS: PCP Physician Assistant; Visit Provider Radiology Diagnostic Radiology | DX: K82.4 Cholesterolosis of gallbladder (principal) | CPT/HCPCS: 76700 ==

== ENCOUNTER 2025-02-07 07:40 | Outpatient (REF) | payer BC, SELFPAY ==
--- OUTSIDE RECORDS SUMMARY | 2025-02-07 07:43 | XMS_ITS | Clinical Summary ---
Author Organization [facility] Address [address] [place], [place] [id number] Phone Care Team Providers Care Bedspread Inspector Name Role Phone Peter Walker MD Primary [...] SCREENING (18-65 YEARS) 1987 PAP SMEAR 1990 MAMMOGRAM 2009 COLOGUARD 2014 COLONOSCOPY 2014 COLORECTAL [...] topic Medical Devices Not on file [place] [address] [address] [place] [address] [place] [address] [place] [address] POS [place] [address] [place] [address] [place] [place] [address] POS Care Teams Bedspread Inspector Relationship Specialty Start Date End Date Peter Walker MD [address] [place] [address] PCP - General Hospitalist 01/23/22 Additional Source Comments The information contained in this document represents components of the legal health record. It is not the complete legal health record.[facility]
[2025-02-07 11:34] LABS: Alanine Aminotransferase 36 U/L (0-31); Albumin Level 4.5 g/dL (3.5-5.0); Alkaline Phosphatase 126 U/L (39-117); Aspartate Amino Transferase 37 U/L (5-31); Cholesterol 117 mg/dL (<200); HDL Cholesterol 31 mg/dL (>40); Total Protein 7.2 g/dL (6.5-8.0); Triglycerides 119 mg/dL (<150)
[2025-02-07 11:54] LABS: HBS Num1 0.15 mIU/mL (0-7.99); HBc Num1 0.07 S/CO (0.00-0.79); ~Hepatitis B Surface Antibody NONREACTIVE (Nonreactive)
== END 2025-02-07 07:41 | disposition home or self-care (01) ==
LOC: HO.WFDLDS 07:40
PROVIDERS: Visit Provider Internal Medicine
DX: R79.89 Other specified abnormal findings of blood chemistry (principal)
CPT/HCPCS: 36415; 80061; 80076; 86704; 86706; 86708